=== PATIENT | female | born 1990 | race Native Hawaiian/Other Pacific Islander ===

== ENCOUNTER 2018-12-17 09:10 | Emergency (ER) | payer OTHER ==
[~2018-12-17] VITALS: Ht 157.5 cm; Wt 77.1 kg
[2018-12-17 09:18] VITALS: BP 112/82; TEMP 97.5
[2018-12-17 10:11] LABS: PLATELET COUNT 267 K/uL (152-353)
[2018-12-17 10:17] LABS: POTASSIUM 3.6 mmol/L (3.6-5.2)
== END 2018-12-17 11:42 | disposition home or self-care (01) ==
LOC: ED 09:10
PROVIDERS: Family Medicine
DX: O20.9 Hemorrhage in early pregnancy, unspecified (principal); Z3A.09 9 weeks gestation of pregnancy
CPT/HCPCS: 80053; 84702; 85027; 99284

== ENCOUNTER 2019-07-18 19:09 | Emergency (ER) | payer OTHER ==
[~2019-07-18] VITALS: Ht 157.5 cm; Wt 77.1 kg
[2019-07-18 19:20] VITALS: BP 159/90
[2019-07-18] MEDS ORDERED: BUPR8SUB2 PO (19:38)
[2019-07-18 20:10] LABS: POTASSIUM 3.9 mmol/L (3.6-5.2)
[2019-07-18 20:11] LABS: PLATELET COUNT 335 K/uL (152-353)
[2019-07-18 20:57] VITALS: TEMP 98.2
== END 2019-07-18 21:08 | disposition home or self-care (01) ==
LOC: ED 19:09
PROVIDERS: Family Medicine
DX: O86.01 Infection of obstetric surgical wound, superficial incisional site (principal); R10.84 Generalized abdominal pain
CPT/HCPCS: 80053; 81000; 85027; 99283

== ENCOUNTER 2022-06-16 11:48 | Emergency (ER) | payer OTHER ==
[~2022-06-16] VITALS: Ht 157.5 cm; Wt 74.8 kg
[~2022-06-16 11:48] MED LIST: BUPR8SUB2 PO
[2022-06-16 11:52] VITALS: BP 134/79; TEMP 98.8
== END 2022-06-16 13:52 | disposition home or self-care (01) ==
LOC: ED 11:48
DX: S93.491A Sprain of other ligament of right ankle, initial encounter (principal); W10.8XXA Fall (on) (from) other stairs and steps, initial encounter; Y92.89 Other specified places as the place of occurrence of the external cause
CPT/HCPCS: 99282